=== PATIENT | female | born 1960 | race Caucasian/White ===

== ENCOUNTER 2020-01-06 22:05 | Emergency (ER) | payer OTHER ==
[2020-01-06 22:17] VITALS: BP 146/61; PULSE 66; TEMP 98.8; BMI 19.2
[2020-01-06] MEDS ORDERED: CALAMINE 8% TOPICAL LOTION 177 ML BOTTLE TP ONE (22:20)
--- NOTE | 2020-01-06 22:20 | PDOC ---
History of Present Illness - General Chief Complaint: Itching Stated Complaint: ITCHING PAIN Time Seen by Provider: 01/06/20 22:20 History Source: Patient Exam Limitations: No Limitations - History of Present Illness Initial Comments: 01/06/20 22:42 59yF w PMHx HIV on medication, crack/cocaine use, L eye prosthetic, CAD, [place] with stent, COPD, HTN, HLD, GERD presenting w 1d L face, external pinna, scalp, neck itchy/red rash. No involvement of nose bridge. Never had this rash before, had chickenpox as a child. Took benadryl 4hrs ago w/o relief. Denies hearing loss, eye pain, fevers, n/v. Past History - Medical History Allergies/Adverse Reactions: Allergies Allergy/AdvReac Type Severity Reaction Status Date / Time No Known Allergies Allergy Verified 01/06/20 22:17 Home Medications: Ambulatory Orders Atorvastatin Ca [Lipitor] 10 mg PO HS 02/11/14 Bismuth Subsalicylate [Kaopectate] 30 ml PO ASDIR 02/11/14 Clopidogrel Bisulfate [Plavix -] 75 mg PO DAILY 02/11/14 Darunavir Ethanolate [Prezista -] 800 mg PO DAILY 02/11/14 Emtricitabine/Tenofovir [Truvada -] 1 tab PO DAILY 02/11/14 Omeprazole [Prilosec] 40 mg PO DAILY 02/11/14 Ritonavir [Norvir] 100 mg PO DAILY 02/11/14 Sulfamethoxazole/Trimethoprim [Bactrim DS -] 1 tab PO DAILY 02/11/14 Bmp 02/12/14 Amoxicillin/Potassium Clav [Augmentin 875-125 Tablet] 1 tab PO Q12H #14 tablet 12/23/15 Calamine 8% Topical Lotion - 1 applic TP QID #1 bottle 01/06/20 Valacyclovir HCl [Valtrex -] 1,000 mg PO TID 10 Days #30 tablet 01/06/20 Cardiac Disorders: Yes (CAD) GI Disorders: Yes (GERD) HTN: Yes Hypercholesterolemia: Yes - Surgical History Cardiac Surgery: Yes (stent x1) - Reproductive History Tubal Ligation: Yes - Immunization History TDAP Vaccination: Yes (04/24/15 at [facility] office) Immunization Up to Date: Yes (04/24/15) - Psycho-Social/Smoking History Smoking History: Never smoked Have you smoked in the past 12 months: Yes Number of Cigarettes Smoked Daily: 4 Information on smoking cessation initiated: No 'Breaking Loose' booklet given: 12/23/15 - Substance Abuse Hx (Audit-C & DAST Scrn) How often the patient has a drink containing alcohol: Never Score: In Men: 4 or > Positive; In Women: 3 or > Positive: 0 Screen Result (Pos requires Nsg. Audit-10AR): Negative In the last yr the pt used illegal drug/Rx for NonMed reason: No Score: Yes response is considered Positive: 0 Screen Result (Positive result requires Nsg. DAST-10): Negative Review of Systems - Review of Systems Constitutional: No: Chills, Fever HEENTM: No: Eye Pain, Recent change in vision, Nose Pain, Hearing Loss Respiratory: No: Cough, Shortness of Breath Cardiac (ROS): No: Chest Pain, Lightheadedness ABD/GI: No: Abdominal Distended, Nausea, Vomiting : No: Burning, Dysuria Musculoskeletal: No: Back Pain, Joint Pain Integumentary: No: Bruising, Dryness Neurological: No: Headache, Seizure Psychiatric: No: Anxiety, Depression Endocrine: No: Intolerance to Cold, Intolerance to Heat Hematologic/Lymphatic: No: Anemia, Blood Clots *Physical Exam - Vital Signs Last Vital Signs Temp Pulse Resp BP Pulse Ox 98.8 F 66 18 146/61 97 01/06/20 22:15 01/06/20 22:15 01/06/20 22:15 01/06/20 22:15 01/06/20 22:15 - Physical Exam General Appearance: Yes: Nourished, Appropriately Dressed, Moderate Distress HEENT: positive: EOMI, BETO (L eye prosthetic), Normal Voice, Hearing Grossly Normal, Other (itchy, erythematous base, grouped clear vescles L face, scalp, pinna, auditory canal, scalp. No nose involvement. No facial paralysis/numbness). negative: Scleral Icterus (R), Scleral Icterus (L) Respiratory/Chest: positive: Lungs Clear, Normal Breath Sounds. negative: Chest Tender, Respiratory Distress Cardiovascular: positive: Regular Rhythm, Regular Rate, S1, S2. negative: Edema, Murmur Gastrointestinal/Abdominal: positive: Normal Bowel Sounds, Flat, Soft. negative: Tender, Organomegaly Integumentary: positive: Warm Neurologic: positive: Fully Oriented, Alert, Normal Response Medical Decision Making - Medical Decision Making 01/06/20 22:55 59yF w PMHx HIV on medication, crack/cocaine use, L eye prosthetic, CAD, [place] with stent, COPD, HTN, HLD, GERD presenting w 1d L face, ear, scalp, neck itchy/red rash d/t shingles. No sign of facial paralysis or eye involvement. Given valtrex, calamine, percocet DC home w valtrex, calamine prescriptions, supportive care instructions, PCP f/u Discharge - Discharge Information Problems reviewed: Yes Clinical Impression/Diagnosis: Shingles Qualifiers: Herpes zoster complications: without complications Qualified Code(s): B02.9 - Zoster without complications Condition: Improved Disposition: HOME - Additional Discharge Information Prescriptions: Calamine 8% Topical Lotion - 1 applic TP QID #1 bottle Valacyclovir HCl [Valtrex -] 1,000 mg PO TID 10 Days #30 tablet - Follow up/Referral - Patient Discharge Instructions Patient Printed Discharge Instructions: DI for Shingles Additional Instructions: You have shingles Take the prescribed Valtrex as directed Take the prescribed Calamine if you have itching Take tylenol or ibuprofen if you have pain Avoid itching your rash Stay away from children or immunocompromised people until your lesions crust over Follow up with your primary care doctor - Post Discharge Activity
[2020-01-06] MEDS ORDERED: valACYclovir HCL 1000 MG TABLET PO ONE (22:34)
[2020-01-06] MEDS ORDERED: valACYclovir HCL 500 MG TABLET (FP) ONE (22:46)
--- NOTE | 2020-01-06 23:12 | PDOC ---
Documentation entered by Onofre Sims SCRIBE, acting as scribe for Rama Romero MD. Rama Romero MD: This documentation has been prepared by the scribe, Onofre Sims SCRIBE, under my direction and personally reviewed by me in its entirety. I confirm that the documentation accurately reflects all work, treatment, procedures, and medical decision making performed by me. Attending Attestation - Resident Resident Name: Papito Gallegos - ED Attending Attestation I have performed the following: I have examined & evaluated the patient, The case was reviewed & discussed with the resident, I agree w/resident's findings & plan, Exceptions are as noted - HPI HPI: 01/06/20 22:58 The patient is a year old female with a significant past medical history of AIDS, crack/cocaine use, CAD, [place] with stent, HTN, GERD, and dyslipidemia who presents to the ED for evaluation of a red, itchy, and painful rash on left side of her scalp, face, ear, and neck that began yesterday. The patient reports taking Benadryl four hours ago to no relief. The patient denies facial paralysis, hearing loss, chest pain and shortness of breath. Denies fever, chills and/or any GI symptoms. Denies any symptoms. De nies any other symptoms. Allergies: NKDA - Physicial Exam PE: 01/06/20 23:09 General: uncomfortable appearing Skin: vesicular rash in clusters in dermatomal distribution (superficial cervical plexus) without any crusting, no lesions on nose HEENT: face symmetric, smile symmetric, no difficulty opening or closing eyes, no facial weakness - Medical Decision Making 01/06/20 23:11 59 yo F with herpes zoster, no facial paralysis and restricted to single dermatome and no lesions on nose or ocular complaints. Plan: -pain control -d/c with rx for valacyclovir x7 days, return precautions given, recommend PMD f/u This clinical encounter is taking place during a federal and state health care emergency attributable to the novel [place] Virus pandemic. The [place] of the Department of Health and Human Services has declared, pursuant to the Public Health Service Act 319F-3 (42 U.S[place]C. 247d-6d), that a covered persons activities related to medical countermeasures against COVID-19 will be immune from liability under Federal and State law. Discharge - Discharge Information Problems reviewed: Yes Clinical Impression/Diagnosis: Shingles Qualifiers: Herpes zoster complications: without complications Qualified Code(s): B02.9 - Zoster without complications Condition: Improved Disposition: HOME - Additional Discharge Information Prescriptions: Calamine 8% Topical Lotion - 1 applic TP QID #1 bottle Valacyclovir HCl [Valtrex -] 1,000 mg PO TID 10 Days #30 tablet - Follow up/Referral - Patient Discharge Instructions Patient Printed Discharge Instructions: DI for Shingles Additional Instructions: You have shingles Take the prescribed Valtrex as directed Take the prescribed Calamine if you have itching Take tylenol or ibuprofen if you have pain Avoid itching your rash Stay away from children or immunocompromised people until your lesions crust over Follow up with your primary care doctor - Post Discharge Activity
== END 2020-01-06 23:33 | disposition home or self-care (01) ==
LOC: JER 22:05
DX: B02.9 Zoster without complications (principal)
CPT/HCPCS: 99283-25

== ENCOUNTER 2020-05-13 00:25 | Inpatient (IN) | payer OTHER ==
[2020-05-13] MEDS ORDERED: SODIUM CHLORIDE 2,041 ML IV ONE (01:02)
[2020-05-13] MEDS ORDERED: PIPERACILLIN/TAZOB 4.5 GM 4.5 GM in DEXTROSE 5%-WATER 100 ML IVPB ONE (01:03)
[2020-05-13] MEDS ORDERED: VANCOMYCIN 1 GM in D5W (PRE-DOCKED) 1,000 MG/250 ML IVPB ONE (01:06)
[2020-05-13 02:13] LABS: BASO % 0.2 % (0-2.0); HEMATOCRIT 44.7 % (32.4-45.2); HEMOGLOBIN 15.5 GM/dL (10.7-15.3); LYMPH % 6.3 % (8-40); MCHC 34.7 g/dl (32.0-36.0); MEAN CELL VOLUME 100.8 fl (80-96); MEAN PLT VOLUME 8.8 fl (7.5-11.1); MONO % 4.7 % (3.8-10.2); NEUT % 88.8 % (42.8-82.8); PLATELET COUNT 131 K/MM3 (134-434); RBC 4.44 M/mm3 (3.60-5.2); RDW 13.3 % (11.6-15.6); WHITE BLOOD COUNT 12.8 K/mm3 (4.0-10.0)
[2020-05-13 02:19] LABS: VENOUS BASE EXCESS 0.5 mmol/L (-2-2); VENOUS O2 SATURATION 92.6 % (70-80); VENOUS PCO2 33.3 mmHg (38-52); VENOUS PH 7.466 (7.310-7.410)
[2020-05-13 02:26] LABS: INR 1.15 (0.83-1.09); PROTHROMBIN TIME (PATIENT) 13.8 SEC (9.7-13.0)
[2020-05-13 02:29] LABS: ACTIVATED PTT 33.9 SECONDS (25.2-36.5)
[2020-05-13] MEDS ORDERED: PIPERACILLIN/TAZOB 4.5 GM 4.5 GM/100 ML BAG IVPB ONE (02:29)
[2020-05-13 02:37] LABS: POTASSIUM 3.5 mmol/L (3.5-5.1)
[2020-05-13 02:39] LABS: CALCIUM 8.8 mg/dL (8.5-10.1)
[2020-05-13 02:40] LABS: ALBUMIN 2.9 g/dl (3.4-5.0); BLOOD UREA NITROGEN 18.9 mg/dL (7-18)
[2020-05-13 02:43] LABS: CREATININE 1.1 mg/dL (0.55-1.3)
[2020-05-13 02:45] LABS: BILIRUBIN,TOTAL 0.6 mg/dL (0.2-1)
[2020-05-13 04:25] LABS: ANISOCYTOSIS 0; HELMET CELLS 0; HOWELL-JOLLY BODIES 0; MACROCYTOSIS 0; OVALOCYTE 0; PLATELET ESTIMATE DECREASED; ROULEAU 0; SICKELED CELLS 0; TARGET CELLS 0; TEAR DROP CELLS 0; TOXIC GRANULATION 0
[2020-05-13] MEDS ORDERED: ASPIRIN 325 MG TABLET PO ONE (05:12)
[2020-05-13] MEDS ORDERED: ACETAMINOPHEN INJECTION 100 ML IVPB ONE (05:24)
[2020-05-13] MEDS ORDERED: ACETAMINOPHEN 1000 MG/100 ML VIAL (NON FORMULARY) IVPB ONE (05:26)
[2020-05-13] MEDS ORDERED: ASPIRIN 81 MG CHEWABLE TABLETS ONE (05:34)
[2020-05-13 06:04] LABS: N-TERMINAL BNP 7009.2 pg/ml (5-125)
[2020-05-13] MEDS ORDERED: LACTATED RINGERS SOLUTION 1000 ML INFUS.BAG IV ONE (07:46)
[2020-05-13] MEDS ORDERED: ATORVASTATIN CA 80 MG TABLET (FP) PO ONE (08:19)
[2020-05-13] MEDS ORDERED: CLOPIDOGREL BISULFATE 75 MG TABLET (FP) PO ONE (08:19)
[2020-05-13] MEDS ORDERED: ATORVASTATIN CA 80 MG TABLET (FP) ONE (08:25)
[2020-05-13] MEDS ORDERED: ENOXAPARIN NA (PORCINE) 80 MG/0.8 ML DISP.SYRIN SQ ONE ×3 (08:25→21:53)
[2020-05-13] MEDS ORDERED: CLOPIDOGREL BISULFATE 75 MG TABLET (FP) ONE (08:25)
[2020-05-13 09:16] LABS: PH,URINE 5.5 (5.0-8.0); URINE APPEARANCE Clear; URINE BILIRUBIN Negative (NEGATIVE); URINE COLOR Yellow; URINE GLUCOSE (UA) Negative (NEGATIVE); URINE KETONE Negative (NEGATIVE); URINE LEUK ESTERASE Negative (NEGATIVE); URINE NITRITE Negative (NEGATIVE); URINE PROTEIN 2+ (NEGATIVE); URINE UROBILINOGEN 0.2 mg/dL (0.2-1.0)
[2020-05-13] MEDS ORDERED: PIPERACILLIN/TAZOB 3.375 GM 3.375 GM/50 ML BAG IVPB ONE (09:45)
[2020-05-13] MEDS ORDERED: PIPERACILLIN/TAZOB 3.375 GM 3.375 GM in DEXTROSE 5%-WATER - 50 ML IVPB SCH (10:00)
[2020-05-13] MEDS ORDERED: SODIUM CHLORIDE 0.9% 500 ML INFUS.BAG IV ONE (10:38)
[2020-05-13 11:22] LABS: BLOOD UREA NITROGEN 17.9 mg/dL (7-18); CREATININE 1.3 mg/dL (0.55-1.3); POTASSIUM 3.1 mmol/L (3.5-5.1)
[2020-05-13 11:34] LABS: METHADONE, UR NEGATIVE ng/ml (CUTOFF=300); OPIATES, URI NEGATIVE ng/ml (CUTOFF=300)
[2020-05-13 11:35] LABS: PHENCYCLIDINE,URINE NEGATIVE ng/ml (CUTOFF=25); URINE AMPHETAMINES NEGATIVE ng/ml (CUTOFF=500); URINE BARBITURATES NEGATIVE ng/ml (CUTOFF=200); URINE BENZODIAZEPINES NEGATIVE ng/ml (CUTOFF=200)
[2020-05-13] MEDS ORDERED: POTASSIUM CHLORIDE TABS 20 MEQ TABLET.ER (FP) PO ONE ×2 (11:36→12:20)
[2020-05-13 11:46] LABS: METHADONE, UR NEGATIVE ng/ml (CUTOFF=300); OPIATES, URI NEGATIVE ng/ml (CUTOFF=300)
[2020-05-13 11:47] LABS: PHENCYCLIDINE,URINE NEGATIVE ng/ml (CUTOFF=25); URINE AMPHETAMINES NEGATIVE ng/ml (CUTOFF=500); URINE BARBITURATES NEGATIVE ng/ml (CUTOFF=200); URINE BENZODIAZEPINES NEGATIVE ng/ml (CUTOFF=200)
[2020-05-13 11:52] LABS: COCAINE, UR POSITIVE ng/ml (CUTOFF=300)
[2020-05-13 11:53] LABS: COCAINE, UR POSITIVE ng/ml (CUTOFF=300)
[2020-05-13] MEDS ORDERED: ACETAMINOPHEN 325 MG TABLET (FP) ONE ×2 (13:17→17:07)
[2020-05-13] MEDS: ACETAMINOPHEN 325 MG TABLET (FP) PO PRN ×2 (13:21→17:10)
[2020-05-13] MEDS ORDERED: VANCOMYCIN 1 GRAM (PRE-DOCKED) 1,000 MG/250 ML BAG IVPB ONE (14:24)
[2020-05-13] MEDS ORDERED: CEFTRIAXONE 1 GM/50 ML BAG ONE (14:25)
[2020-05-13] MEDS ORDERED: CEFTRIAXONE 2 GM/100 ML BAG IVPB ONE (14:27)
[2020-05-13] MEDS: CEFTRIAXONE 2 GM in DEXTROSE 5%-WATER 2 GM/100 ML BAG IVPB SCH (14:31)
[2020-05-13] MEDS: VANCOMYCIN 1 GRAM (PRE-DOCKED) 1,000 MG/250 ML BAG IVPB SCH (15:02)
[2020-05-13] MEDS ORDERED: SODIUM CHLORIDE 1,000 ML IV STA (19:20)
[2020-05-13] MEDS ORDERED: ENOXAPARIN NA (PORCINE) 80 MG/0.8 ML DISP.SYRIN SQ SCH (22:00)
[2020-05-13] MEDS ORDERED: TRIMETHOBENZAMIDE HCL 200MG/2ML INJ IM ONE (22:14)
[2020-05-13 23:10] LABS: POTASSIUM 3.8 mmol/L (3.5-5.1)
[2020-05-13 23:11] LABS: CALCIUM 7.4 mg/dL (8.5-10.1)
[2020-05-13 23:12] LABS: BLOOD UREA NITROGEN 12.7 mg/dL (7-18)
[2020-05-13 23:15] LABS: CREATININE 0.7 mg/dL (0.55-1.3)
[2020-05-14] MEDS ORDERED: VANCOMYCIN 1 GRAM (PRE-DOCKED) 1,000 MG/250 ML BAG IVPB ONE (03:23)
[2020-05-14] MEDS: VANCOMYCIN 1 GRAM (PRE-DOCKED) 1,000 MG/250 ML BAG IVPB SCH ×2 (04:00→13:44)
[2020-05-14 05:02] VITALS: BMI 18.4
[2020-05-14 07:59] LABS: EOS % 0.6 % (0-4.5); HEMATOCRIT 35.7 % (32.4-45.2); HEMOGLOBIN 12.5 GM/dL (10.7-15.3); MCH 35.7 pg (25.7-33.7); MCHC 35.1 g/dl (32.0-36.0); MEAN CELL VOLUME 101.6 fl (80-96); MEAN PLT VOLUME 9.4 fl (7.5-11.1); MONO % 5.4 % (3.8-10.2); PLATELET COUNT 110 K/MM3 (134-434); RBC 3.51 M/mm3 (3.60-5.2); RDW 13.3 % (11.6-15.6); WHITE BLOOD COUNT 8.1 K/mm3 (4.0-10.0)
[2020-05-14] MEDS ORDERED: PT OWN MED DRAWER 7, Y5N ONE ×6 (08:00→11:11)
[2020-05-14] MEDS ORDERED: DEXTROSE 5%-WATER 100 ML IVPB ONE (08:01)
[2020-05-14 08:20] LABS: POTASSIUM 3.1 mmol/L (3.5-5.1)
[2020-05-14 08:25] LABS: ALBUMIN 2.3 g/dl (3.4-5.0); BLOOD UREA NITROGEN 10.7 mg/dL (7-18)
[2020-05-14 08:26] LABS: CALCIUM 7.7 mg/dL (8.5-10.1)
[2020-05-14 08:28] LABS: CREATININE 0.6 mg/dL (0.55-1.3); PHOSPHOROUS 2.2 mg/dL (2.5-4.9)
[2020-05-14 08:29] LABS: BILIRUBIN,TOTAL 0.6 mg/dL (0.2-1); TOT PROT 6.7 g/dl (6.4-8.2)
[2020-05-14] MEDS: CEFTRIAXONE 2 GM in DEXTROSE 5%-WATER 2 GM/100 ML BAG IVPB SCH (09:11)
[2020-05-14] MEDS: ACETAMINOPHEN 325 MG TABLET (FP) PO PRN (09:18)
[2020-05-14] MEDS: ATOVAQUONE 750 MG/5 ML (UNIT-DOSE PACKAGING) PO SCH ×3 (09:20→10:00)
[2020-05-14] MEDS ORDERED: POTASSIUM CHLORIDE TABS 20 MEQ TABLET.ER (FP) PO ONE (09:26)
[2020-05-14] MEDS ORDERED: ASPIRIN COATED 81 MG TABLET.EC PO SCH (10:00)
[2020-05-14] MEDS ORDERED: CLOPIDOGREL BISULFATE 75 MG TABLET (FP) PO SCH (10:00)
[2020-05-14] MEDS ORDERED: BICTEGRAV/EMTRICIT/TENOFOV (BIKTARVY) 50-200-25 MG TABLET PO SCH (10:00)
[2020-05-14] MEDS ORDERED: POTASSIUM PHOSPHATE 15 MM in SODIUM CHLORIDE 250 ML IVPB ONE (10:00)
[2020-05-14] MEDS ORDERED: ENOXAPARIN NA (PORCINE) 60 MG/0.6 ML DISP.SYRIN SQ SCH ×2 (13:00→18:00)
[2020-05-14] MEDS ORDERED: LORazepam 2 MG/ML SDV VIAL IVPUSH ONE (19:47)
[2020-05-14] MEDS ORDERED: ATORVASTATIN CA 80 MG TABLET (FP) PO SCH (22:00)
[2020-05-15] MEDS ORDERED: FLUMAZENIL 0.5 MG/5 ML VIAL IVPUSH PRN ×2 (01:13→05:01)
[2020-05-15] MEDS ORDERED: FLUMAZENIL 0.5 MG/5 ML VIAL IVPUSH ONE ×2 (01:15→05:01)
[2020-05-15] MEDS ORDERED: MUPIROCIN 2% TOPICAL OINTMENT FOR DECOLONIZATION NS SCH (01:45)
[2020-05-15 02:52] LABS: HEMATOCRIT 32.1 % (32.4-45.2); HEMOGLOBIN 11.1 GM/dL (10.7-15.3); MCH 35.2 pg (25.7-33.7); MCHC 34.5 g/dl (32.0-36.0); MEAN CELL VOLUME 101.9 fl (80-96); MEAN PLT VOLUME 9.1 fl (7.5-11.1); PLATELET COUNT 105 K/MM3 (134-434); RBC 3.15 M/mm3 (3.60-5.2); RDW 13.2 % (11.6-15.6)
[2020-05-15 02:59] LABS: ARTERIAL BLD GAS O2 SATURATION 94.7 mmHg (95-98); ARTERIAL BLOOD GAS BASE EXCESS -0.6 mmol/L (-2-2); ARTERIAL BLOOD GAS PO2 75.5 mmHg (80-100); ARTERIAL BLOOD GAS pH 7.368 (7.350-7.450)
[2020-05-15] MEDS ORDERED: PHENYLEPHRINE HCL 10 MG/1 ML SINGLE DOSE VIAL ONE (03:00)
[2020-05-15 03:01] LABS: ALLENS TEST POSITIVE; VENT MODE A/C
[2020-05-15 03:02] LABS: VENT RATE 14
[2020-05-15 03:12] LABS: POTASSIUM 3.2 mmol/L (3.5-5.1)
[2020-05-15] MEDS: VANCOMYCIN 1 GRAM (PRE-DOCKED) 1,000 MG/250 ML BAG IVPB SCH ×2 (03:13→15:44)
[2020-05-15] MEDS: PHENYLEPHRINE NS PREMIX 50,000 MCG/500 ML BAG CVP SCH (03:13)
[2020-05-15 03:14] LABS: CALCIUM 7.1 mg/dL (8.5-10.1)
[2020-05-15 03:15] LABS: BLOOD UREA NITROGEN 11.6 mg/dL (7-18)
[2020-05-15 03:18] LABS: CREATININE 0.9 mg/dL (0.55-1.3); PHOSPHOROUS 3.8 mg/dL (2.5-4.9)
[2020-05-15 03:19] LABS: BILIRUBIN,TOTAL 0.3 mg/dL (0.2-1); TOT PROT 5.9 g/dl (6.4-8.2)
[2020-05-15] MEDS: KCL 10 MEQ IVPB 10 MEQ/100 ML INFUS.BAG IVPB SCH ×3 (04:42→07:00)
[2020-05-15] MEDS ORDERED: PIPERACILLIN/TAZOBACTAM 3.375 GM VIAL IVPB ONE ×3 (04:55→17:30)
[2020-05-15] MEDS ORDERED: DEXTROSE 5%-WATER - 50 ML IVPB ONE ×3 (04:55→17:31)
[2020-05-15] MEDS: PIPERACILLIN/TAZOB 3.375 GM 3.375 GM in DEXTROSE 5%-WATER - 50 ML IVPB SCH ×3 (05:00→17:55)
[2020-05-15] MEDS ORDERED: ACETAMINOPHEN 325 MG TABLET (FP) PO PRN (05:01)
[2020-05-15] MEDS ORDERED: ENOXAPARIN NA (PORCINE) 60 MG/0.6 ML DISP.SYRIN SQ SCH (06:00)
[2020-05-15] MEDS ORDERED: LACTATED RINGERS SOLUTION 1,000 ML/1,000 ML INFUS.BAG IV STA (06:40)
[2020-05-15] MEDS ORDERED: LACTATED RINGERS SOLUTION 1,000 ML/1,000 ML INFUS.BAG IV ONE (06:43)
[2020-05-15] MEDS ORDERED: DOPAMINE 400 MG/D5W - 400,000 MCG/250 ML INFUS.BAG IVPB ONE (06:52)
[2020-05-15] MEDS ORDERED: DOPAMINE HCL 400,000 MCG in SODIUM CHLORIDE 240 ML IV SCH (07:15)
[2020-05-15 07:16] LABS: INR 1.09 (0.83-1.09); PROTHROMBIN TIME (PATIENT) 13.2 SEC (9.7-13.0)
[2020-05-15 07:19] LABS: ACTIVATED PTT 35.3 SECONDS (25.2-36.5)
[2020-05-15 07:22] LABS: POTASSIUM 3.1 mmol/L (3.5-5.1)
[2020-05-15 07:24] LABS: BASO % 0.1 % (0-2.0); EOS % 0.1 % (0-4.5); HEMATOCRIT 36.7 % (32.4-45.2); HEMOGLOBIN 12.4 GM/dL (10.7-15.3); MCH 34.3 pg (25.7-33.7); MCHC 33.8 g/dl (32.0-36.0); MEAN CELL VOLUME 101.7 fl (80-96); MEAN PLT VOLUME 9.4 fl (7.5-11.1); MONO % 5.1 % (3.8-10.2); NEUT % 86.7 % (42.8-82.8); PLATELET COUNT 129 K/MM3 (134-434); RBC 3.61 M/mm3 (3.60-5.2); RDW 13.1 % (11.6-15.6); WHITE BLOOD COUNT 8.6 K/mm3 (4.0-10.0)
[2020-05-15 07:25] LABS: CALCIUM 7.7 mg/dL (8.5-10.1)
[2020-05-15 07:26] LABS: ALBUMIN 2.2 g/dl (3.4-5.0); BLOOD UREA NITROGEN 11.2 mg/dL (7-18)
[2020-05-15 07:29] LABS: CREATININE 0.8 mg/dL (0.55-1.3)
[2020-05-15 07:30] LABS: BILIRUBIN,TOTAL 0.5 mg/dL (0.2-1); TOT PROT 6.6 g/dl (6.4-8.2)
[2020-05-15] MEDS ORDERED: LACTATED RINGERS SOLUTION 1,000 ML/1,000 ML INFUS.BAG IV SCH (08:45)
[2020-05-15 08:49] LABS: METHADONE, UR NEGATIVE ng/ml (CUTOFF=300); OPIATES, URI NEGATIVE ng/ml (CUTOFF=300); PHENCYCLIDINE,URINE NEGATIVE ng/ml (CUTOFF=25); URINE BARBITURATES NEGATIVE ng/ml (CUTOFF=200); URINE BENZODIAZEPINES NEGATIVE ng/ml (CUTOFF=200)
[2020-05-15 08:55] LABS: URINE AMPHETAMINES NEGATIVE ng/ml (CUTOFF=500)
[2020-05-15 08:58] LABS: COCAINE, UR POSITIVE ng/ml (CUTOFF=300)
[2020-05-15] MEDS ORDERED: CLOPIDOGREL BISULFATE 75 MG TABLET (FP) PO SCH (10:00)
[2020-05-15] MEDS: ATOVAQUONE 750 MG/5 ML (UNIT-DOSE PACKAGING) PO SCH (10:00)
[2020-05-15] MEDS ORDERED: ASPIRIN COATED 81 MG TABLET.EC PO SCH (10:00)
[2020-05-15] MEDS ORDERED: CYANOCOBALAMIN (VITAMIN B-12) 100 MCG TABLET PO SCH (10:00)
[2020-05-15] MEDS: MUPIROCIN 2% TOPICAL OINTMENT FOR DECOLONIZATION NS SCH ×2 (10:48→21:46)
[2020-05-15] MEDS ORDERED: PT OWN MED DRAWER 7, Y5N ONE (10:48)
[2020-05-15] MEDS: BICTEGRAV/EMTRICIT/TENOFOV (BIKTARVY) 50-200-25 MG TABLET PO SCH (10:48)
[2020-05-15 11:01] LABS: MAGNESIUM 2.4 mg/dL (1.8-2.4)
[2020-05-15] MEDS ORDERED: NOREPINEPHRINE BITARTRATE 8,000 MCG/500 ML BAG IVPB ONE (15:01)
[2020-05-15] MEDS: LACTATED RINGERS SOLUTION 1,000 ML/1,000 ML INFUS.BAG IV SCH (19:04)
[2020-05-15] MEDS ORDERED: NOREPINEPHRINE BITARTRATE 8,000 MCG in DEXTROSE 5%-WATER - 492 ML IV SCH (19:15)
[2020-05-15] MEDS: CHLORHEXIDINE GLUCONATE 4% CLEANSER FOR DECOLONIZATION TP SCH (21:46)
[2020-05-15] MEDS: ATORVASTATIN CA 80 MG TABLET (FP) PO SCH (21:46)
[2020-05-15] MEDS ORDERED: CHLORHEXIDINE GLUCONATE 4% CLEANSER FOR DECOLONIZATION TP SCH (22:00)
[2020-05-16] MEDS ORDERED: PIPERACILLIN/TAZOBACTAM 3.375 GM VIAL IVPB ONE ×2 (00:54→10:02)
[2020-05-16] MEDS ORDERED: DEXTROSE 5%-WATER - 50 ML IVPB ONE ×2 (00:55→10:02)
[2020-05-16] MEDS: PIPERACILLIN/TAZOB 3.375 GM 3.375 GM in DEXTROSE 5%-WATER - 50 ML IVPB SCH (01:35)
[2020-05-16] MEDS: VANCOMYCIN 1 GRAM (PRE-DOCKED) 1,000 MG/250 ML BAG IVPB SCH (02:03)
[2020-05-16] MEDS ORDERED: ATROPINE SULFATE 1 MG/10 ML DISP.SYRIN ONE ×3 (02:42→02:57)
[2020-05-16] MEDS: ATROPINE SO4 0.4 MG/1 ML VIAL IVPUSH PRN ×6 (02:50→03:06)
[2020-05-16] MEDS ORDERED: DOPAMINE 400 MG/D5W - 400,000 MCG/250 ML INFUS.BAG IVPB SCH (03:30)
[2020-05-16] MEDS: POTASSIUM CHLORIDE 20 MEQ PREMIX IVPB 100 ML IVPB SCH ×3 (04:03→05:55)
[2020-05-16] MEDS: PHENYLEPHRINE NS PREMIX 50,000 MCG/500 ML BAG CVP SCH (04:16)
[2020-05-16] MEDS: NOREPINEPHRINE BITARTRATE 8,000 MCG in DEXTROSE 5%-WATER - 492 ML IV SCH (07:20)
[2020-05-16 07:35] LABS: POTASSIUM 4.2 mmol/L (3.5-5.1)
[2020-05-16 07:43] LABS: ALBUMIN 1.9 g/dl (3.4-5.0); BLOOD UREA NITROGEN 12.2 mg/dL (7-18); CALCIUM 8.1 mg/dL (8.5-10.1); MAGNESIUM 2.5 mg/dL (1.8-2.4)
[2020-05-16 07:46] LABS: CREATININE 0.7 mg/dL (0.55-1.3); PHOSPHOROUS 2.5 mg/dL (2.5-4.9)
[2020-05-16 07:47] LABS: BILIRUBIN,TOTAL 0.3 mg/dL (0.2-1); TOT PROT 5.9 g/dl (6.4-8.2)
[2020-05-16 09:57] LABS: HEMATOCRIT 37.9 % (32.4-45.2); HEMOGLOBIN 12.8 GM/dL (10.7-15.3); MCH 34.9 pg (25.7-33.7); MCHC 33.8 g/dl (32.0-36.0); MEAN CELL VOLUME 103.4 fl (80-96); RBC 3.66 M/mm3 (3.60-5.2); RDW 13.4 % (11.6-15.6); WHITE BLOOD COUNT 5.8 K/mm3 (4.0-10.0)
[2020-05-16 09:58] LABS: BASO % 0.4 % (0-2.0); LYMPH % 11.1 % (8-40); MEAN PLT VOLUME 9.7 fl (7.5-11.1); MONO % 3.2 % (3.8-10.2); NEUT % 84.3 % (42.8-82.8); PLATELET COUNT 95 K/MM3 (134-434)
[2020-05-16] MEDS ORDERED: PIPERACILLIN/TAZOB 3.375 GM 3.375 GM in DEXTROSE 5%-WATER - 50 ML IVPB SCH (10:00)
[2020-05-16] MEDS ORDERED: PT OWN MED DRAWER 7, Y5N ONE (10:01)
[2020-05-16] MEDS: MUPIROCIN 2% TOPICAL OINTMENT FOR DECOLONIZATION NS SCH ×2 (10:03→23:29)
[2020-05-16] MEDS: VANCOMYCIN HCL 1,250 MG in DEXTROSE 5%-WATER - 250 ML IVPB SCH (10:03)
[2020-05-16] MEDS: BICTEGRAV/EMTRICIT/TENOFOV (BIKTARVY) 50-200-25 MG TABLET PO SCH (10:04)
[2020-05-16] MEDS: ATOVAQUONE 750 MG/5 ML (UNIT-DOSE PACKAGING) PO SCH (10:04)
[2020-05-16] MEDS: LACTATED RINGERS SOLUTION 1,000 ML/1,000 ML INFUS.BAG IV SCH (16:25)
[2020-05-16 22:22] LABS: ARTERIAL BLD GAS O2 SATURATION 92.1 mmHg (95-98); ARTERIAL BLOOD GAS BASE EXCESS -0.3 mmol/L (-2-2); ARTERIAL BLOOD GAS PO2 72.3 mmHg (80-100); ARTERIAL BLOOD GAS pH 7.271 (7.350-7.450)
[2020-05-16 22:24] LABS: ALLENS TEST POSITIVE; PT'S TEMP 98.3; VENT MODE A/C
[2020-05-16 22:25] LABS: VENT RATE 14
[2020-05-16] MEDS ORDERED: VASOPRESSIN 40 UNITS in SODIUM CHLORIDE 98 ML IVPB SCH (23:00)
[2020-05-16] MEDS ORDERED: LACTATED RINGERS SOLUTION 1000 ML INFUS.BAG IV ONE (23:09)
[2020-05-16] MEDS: ATORVASTATIN CA 80 MG TABLET (FP) PO SCH (23:29)
[2020-05-16] MEDS: CHLORHEXIDINE GLUCONATE 4% CLEANSER FOR DECOLONIZATION TP SCH (23:29)
[2020-05-16 23:46] LABS: EOS % 2.2 % (0-4.5); HEMATOCRIT 41.2 % (32.4-45.2); HEMOGLOBIN 13.6 GM/dL (10.7-15.3); LYMPH % 7.1 % (8-40); MCH 34.3 pg (25.7-33.7); MCHC 32.9 g/dl (32.0-36.0); MEAN CELL VOLUME 104.3 fl (80-96); MONO % 2.1 % (3.8-10.2); NEUT % 88.6 % (42.8-82.8); PLATELET COUNT 76 K/MM3 (134-434); RBC 3.95 M/mm3 (3.60-5.2); RDW 14.5 % (11.6-15.6)
[2020-05-17] LABS: POTASSIUM 4.1 mmol/L (3.5-5.1)
[2020-05-17 00:03] LABS: ALBUMIN 1.7 g/dl (3.4-5.0); CALCIUM 8.1 mg/dL (8.5-10.1)
[2020-05-17 00:04] LABS: BLOOD UREA NITROGEN 12.7 mg/dL (7-18); MAGNESIUM 2.2 mg/dL (1.8-2.4)
[2020-05-17 00:06] LABS: PHOSPHOROUS 3.3 mg/dL (2.5-4.9)
[2020-05-17 00:07] LABS: CREATININE 1.1 mg/dL (0.55-1.3)
[2020-05-17 00:08] LABS: BILIRUBIN,TOTAL 0.3 mg/dL (0.2-1); TOT PROT 5.6 g/dl (6.4-8.2)
[2020-05-17] MEDS: VANCOMYCIN HCL 1,250 MG in DEXTROSE 5%-WATER - 250 ML IVPB SCH ×2 (00:20→09:43)
[2020-05-17] MEDS ORDERED: PIPERACILLIN/TAZOBACTAM 3.375 GM VIAL IVPB ONE ×2 (01:48→09:38)
[2020-05-17] MEDS ORDERED: DEXTROSE 5%-WATER - 50 ML IVPB ONE ×3 (01:48→17:54)
[2020-05-17] MEDS: PIPERACILLIN/TAZOB 3.375 GM 3.375 GM in DEXTROSE 5%-WATER - 50 ML IVPB SCH ×2 (02:02→09:44)
[2020-05-17 04:06] LABS: ARTERIAL BLD GAS O2 SATURATION 88.8 mmHg (95-98); ARTERIAL BLOOD GAS BASE EXCESS -0.1 mmol/L (-2-2); ARTERIAL BLOOD GAS PO2 63.9 mmHg (80-100); ARTERIAL BLOOD GAS pH 7.267 (7.350-7.450)
[2020-05-17 04:10] LABS: ALLENS TEST POSITIVE
[2020-05-17 04:11] LABS: PT'S TEMP 99.2; VENT MODE A/C; VENT RATE 22
[2020-05-17 04:24] LABS: BASO % 0.6 % (0-2.0); EOS % 1.4 % (0-4.5); HEMATOCRIT 44.7 % (32.4-45.2); HEMOGLOBIN 14.9 GM/dL (10.7-15.3); LYMPH % 10.3 % (8-40); MCH 32.1 pg (25.7-33.7); MCHC 33.2 g/dl (32.0-36.0); MEAN CELL VOLUME 96.7 fl (80-96); MEAN PLT VOLUME 9.1 fl (7.5-11.1); MONO % 8.6 % (3.8-10.2); NEUT % 79.1 % (42.8-82.8); PLATELET COUNT 81 K/MM3 (134-434); RBC 4.62 M/mm3 (3.60-5.2); WHITE BLOOD COUNT 4.7 K/mm3 (4.0-10.0)
[2020-05-17 06:03] LABS: INR 1.23 (0.83-1.09); PROTHROMBIN TIME (PATIENT) 14.8 SEC (9.7-13.0)
[2020-05-17 06:05] LABS: ACTIVATED PTT 34.7 SECONDS (25.2-36.5)
[2020-05-17 06:32] LABS: POTASSIUM 3.9 mmol/L (3.5-5.1)
[2020-05-17 06:34] LABS: CALCIUM 7.7 mg/dL (8.5-10.1)
[2020-05-17 06:35] LABS: ALBUMIN 1.5 g/dl (3.4-5.0); BLOOD UREA NITROGEN 12.3 mg/dL (7-18); MAGNESIUM 1.8 mg/dL (1.8-2.4)
[2020-05-17 06:38] LABS: CREATININE 1.7 mg/dL (0.55-1.3); PHOSPHOROUS 2.9 mg/dL (2.5-4.9)
[2020-05-17 06:39] LABS: BILIRUBIN,TOTAL 0.3 mg/dL (0.2-1); TOT PROT 5.2 g/dl (6.4-8.2)
[2020-05-17] MEDS: NOREPINEPHRINE BITARTRATE 8,000 MCG in DEXTROSE 5%-WATER - 492 ML IV SCH (07:00)
[2020-05-17] MEDS ORDERED: PT OWN MED DRAWER 7, Y5N ONE (09:37)
[2020-05-17] MEDS: ATOVAQUONE 750 MG/5 ML (UNIT-DOSE PACKAGING) PO SCH (09:44)
[2020-05-17] MEDS: MUPIROCIN 2% TOPICAL OINTMENT FOR DECOLONIZATION NS SCH (09:47)
[2020-05-17] MEDS: BICTEGRAV/EMTRICIT/TENOFOV (BIKTARVY) 50-200-25 MG TABLET PO SCH (09:49)
[2020-05-17 10:53] LABS: BASO % 0.3 % (0-2.0); EOS % 0.9 % (0-4.5); HEMATOCRIT 32.7 % (32.4-45.2); HEMOGLOBIN 10.7 GM/dL (10.7-15.3); LYMPH % 4.6 % (8-40); MCH 33.8 pg (25.7-33.7); MCHC 32.7 g/dl (32.0-36.0); MEAN CELL VOLUME 103.4 fl (80-96); MEAN PLT VOLUME 9.8 fl (7.5-11.1); MONO % 2.5 % (3.8-10.2); NEUT % 91.7 % (42.8-82.8); PLATELET COUNT 82 K/MM3 (134-434); RBC 3.16 M/mm3 (3.60-5.2); RDW 14.2 % (11.6-15.6); WHITE BLOOD COUNT 13.4 K/mm3 (4.0-10.0)
[2020-05-17 11:17] LABS: POTASSIUM 4.3 mmol/L (3.5-5.1)
[2020-05-17 11:18] LABS: EPI CELLS 10 /uL (0-25.1); HYALINE CASTS 4 /uL (0-3.1); URINE APPEARANCE TURBID; URINE BILIRUBIN 2+ (NEGATIVE); URINE COLOR ORANGE; URINE GLUCOSE (UA) TRACE (NEGATIVE); URINE KETONE NEGATIVE (NEGATIVE); URINE LEUK ESTERASE 2+ (NEGATIVE); URINE NITRITE NEGATIVE (NEGATIVE); URINE PROTEIN 3+ (NEGATIVE); URINE UROBILINOGEN 0.2 mg/dL (0.2-1.0); URINE WBC 539 /uL (0-25.8)
[2020-05-17 11:20] LABS: ALBUMIN 1.6 g/dl (3.4-5.0); CALCIUM 7.9 mg/dL (8.5-10.1)
[2020-05-17 11:21] LABS: BLOOD UREA NITROGEN 14.5 mg/dL (7-18); MAGNESIUM 1.6 mg/dL (1.8-2.4); URINE RBC 6062.8 /uL (0-23.9)
[2020-05-17 11:23] LABS: CREATININE 2.3 mg/dL (0.55-1.3)
[2020-05-17 11:24] LABS: PHOSPHOROUS 3.1 mg/dL (2.5-4.9)
[2020-05-17 11:25] LABS: BILIRUBIN,TOTAL 0.4 mg/dL (0.2-1); TOT PROT 5.4 g/dl (6.4-8.2)
[2020-05-17 11:31] LABS: INR 1.2 (0.83-1.09); PROTHROMBIN TIME (PATIENT) 14.7 SEC (9.7-13.0)
[2020-05-17 11:34] LABS: ACTIVATED PTT 34.2 SECONDS (25.2-36.5)
[2020-05-17 11:46] LABS: ANISOCYTOSIS 0; MACROCYTOSIS 1+; PLATELET ESTIMATE DECREASED; TARGET CELLS 1+; TOXIC GRANULATION 1+
[2020-05-17 11:47] LABS: YEAST NON SEEN (NEGATIVE)
[2020-05-17] MEDS ORDERED: PIPERACILLIN/TAZOBACTAM 2.25 GM VIAL IVPB ONE (17:54)
[2020-05-17] MEDS ORDERED: PIPERACILLIN/TAZOB 2.25 GM 2.25 GM in DEXTROSE 5%-WATER - 50 ML IVPB SCH (18:00)
[2020-05-17 18:23] VITALS: BP 153/86; PULSE 112; TEMP 98
== END 2020-05-17 19:05 | disposition expired | DRG 890 ==
LOC: JER 00:25 → JERBED 06:38 → JICU 05-14 06:08
PROVIDERS: ATTEND Internal Medicine
PROC: 5A1945Z Respiratory Ventilation, 24-96 Consecutive Hours (ICD-10-PCS; principal; 2020-05-15)
PROC: 0BH17EZ Insertion of Endotracheal Airway into Trachea, Via Natural or Artificial Opening (ICD-10-PCS; 2020-05-15)
PROC: 05HM33Z Insertion of Infusion Device into Right Internal Jugular Vein, Percutaneous Approach (ICD-10-PCS; 2020-05-15)
PROC: B543ZZA Ultrasonography of Right Jugular Veins, Guidance (ICD-10-PCS; 2020-05-15)
DX: A41.02 Sepsis due to Methicillin resistant Staphylococcus aureus (principal); E87.1 Hypo-osmolality and hyponatremia; F14.10 Cocaine abuse, uncomplicated; D73.5 Infarction of spleen; E83.39 Other disorders of phosphorus metabolism; E87.6 Hypokalemia; I33.9 Acute and subacute endocarditis, unspecified; R00.1 Bradycardia, unspecified; J96.01 Acute respiratory failure with hypoxia; R09.2 Respiratory arrest; G93.1 Anoxic brain damage, not elsewhere classified; I61.9 Nontraumatic intracerebral hemorrhage, unspecified; B20 Human immunodeficiency virus [HIV] disease; I21.4 Non-ST elevation (NSTEMI) myocardial infarction; I25.10 Atherosclerotic heart disease of native coronary artery without angina pectoris; Z95.5 Presence of coronary angioplasty implant and graft; N17.9 Acute kidney failure, unspecified; K21.9 Gastro-esophageal reflux disease without esophagitis; J45.909 Unspecified asthma, uncomplicated; D72.829 Elevated white blood cell count, unspecified; D69.6 Thrombocytopenia, unspecified; E87.0 Hyperosmolality and hypernatremia; R65.21 Severe sepsis with septic shock; E86.0 Dehydration; I95.9 Hypotension, unspecified
CPT/HCPCS: 36415; 36600; 70450-TC; 71045-TC-FY; 71260-TC; 74177-TC; 76705-TC; 80048; 80053; 80061; 80074; 80307; 81003; 82024; 82150; 82306; 82436; 82533; 82550; 82553; 82607; 82746; 82803; 83036; 83605; 83615; 83690; 83721; 83735; 83880; 83970; 84100; 84133; 84300; 84443; 84484; 85025; 85027; 85384; 85610; 85730; 86359; 86360; 86780; 86850; 86900; 86901; 87040; 87086; 87186; 87804; 87807; 87899; 93005; 93010; 93306-TC; 94002; 99285-25; C9803; G0480; J0131; U0003